=== PATIENT | male | born 1930 | race Caucasian/White ===

== ENCOUNTER 2017-03-15 11:19 | Emergency (ER) | payer MEDICARE, BC ==
[2017-03-15] MEDS ORDERED: Sodium Chloride 0.9% 2.5 ML Syringe FLUSH PRN (11:56)
[2017-03-15] MEDS ORDERED: Sodium Chloride 0.9% 10 ML Syringe FLUSH PRN (11:56)
[2017-03-15] MEDS ORDERED: Morphine 2 MG/ML Syringe IVPUSH ONE (11:56)
[2017-03-15] MEDS ORDERED: Ondansetron 4 MG/2 ML SDV IVPUSH ONE (11:56)
--- NOTE | 2017-03-15 11:58 | EDM.PDOC ---
ED HPI GENERAL MEDICAL PROBLEM - General Chief Complaint: Back Pain or Injury Stated Complaint: PT SPOKE TO NURSE Time Seen by Provider: 03/15/17 11:39 - History of Present Illness INITIAL COMMENTS - FREE TEXT/NARRATIVE: HISTORY AND PHYSICAL: History of present illness: The patient is an 86-year-old male who is here with complaints of right lower back and right lower abdominal pain that he says started gradually yesterday and was worse today. The patient is not a very good historian and says he only medication that he takes his hydrochlorothiazide and that he [facility]. According to family he lives alone and they check in on him and help him with his groceries and other tasks and that he has on and off complained of pain in a variety of locations but they were unsure if he actually followed up for those issues. Today his pain seemed to be worse and he was having difficulty moving and walking so they suggested that he comes here. The patient indicates the area of pain as he is right posterior pelvis area not his flank and says it radiates to the front. It does not radiate down his leg and he has no weakness or neurosensory changes in his leg. He tells me that he is having normal bowel movements but the family say that sometimes he can get very constipated. According to the family they have suspected that he is having signs of dementia and forgetfulness as been gradual in onset. The patient on my evaluation denies any fevers chills chest pain shortness of breath nausea vomiting or urinary complaints. The patient has a large well-healed midline abdominal scar which when I ask him what that is from he says he doesn't know. The family tells me that he had cancer surgery and they're not sure what surgery he had done but that he is allegedly in remission. Patient has never had back surgery. The patient denies extremity complaints and has no upper back pain or neck pain. He says he took some Motrin this morning for pain but he does not take anything yesterday. He says he is eating normally. The patient tells me the pain is worse when he lays on his back and with certain movements. Review of systems: As per history of present illness and below otherwise all systems reviewed and negative. Past medical history: As per history of present illness and as reviewed below otherwise noncontributory. Surgical history: As per history of present illness and as reviewed below otherwise noncontributory. Social history: No reported history of drug or alcohol abuse. Family history: As per history of present illness and as reviewed below otherwise noncontributory. Physical exam: Gen.: Well-developed well-nourished man who is nontoxic and vital signs have been reviewed by me. Patient is able to move in the bed without assistance but looks uncomfortable in doing so. HEENT: Atraumatic, normocephalic, pupils reactive, negative for conjunctival pallor or scleral icterus, mucous membranes tacky throat clear, neck supple, nontender, trachea midline. Lungs: Clear to auscultation, breath sounds equal bilaterally, chest nontender. There are diminished breath sounds in the bases and not a very good effort on my exam but there is no worker breathing or sensory muscle use or breathlessness Heart: S1S2, regular, negative for clicks, rubs, or JVD. Abdomen: Soft, nondistended, bowel sounds are hypoactive. There is a well- healed large mid abdominal scar appreciated and just below the umbilicus to the right there is a large cantaloupe sized well demarcated mass appreciated which is not pulsatile and is tender. There is no gross hernial defect appreciated in the scar. When asked the patient about this mass he says he did not know that it was there. Negative for masses or hepatosplenomegaly. Negative for costovertebral tenderness. Pelvis: Stable nontender. Genitourinary: Deferred. Rectal: Deferred. Extremities: Atraumatic, negative for cords or calf pain. Neurovascular unremarkable. Full range of motion without defects or deficits Neuro: Awake, alert, oriented. Cranial nerves II through XII unremarkable. Cerebellum unremarkable. Motor and sensory unremarkable throughout. Exam nonfocal. Back: There are no midline step-offs in his defects of the thoracic or lumbar spine no posterior rib tenderness no posterior pelvis tenderness and no soft tissue injuries. There is no CVA tenderness. Please note that the patient has triphasic dorsalis pedis on the right and a biphasic dorsalis pedis on the left with good cap refill good color normal sensation in his lower extremities. Diagnostics: CBC CMP amylase lipase INR lactic acid UA CT scan of the abdomen and pelvis CT scan of the lumbar spine portable chest x-ray Therapeutics: IV IV fluids morphine Zofran Dilaudid labetalol Ch to gravity I discussed with the patient and family at bedside the CAT scan results as it appears that he has a very large unruptured AAA. I am currently trying to procure a flight team and the location that has adequate vascular keep ability to handle this. I have told the patient and the family that if this ruptures this will be devastating. They state understanding. I've alerted blood bank that I will need blood for the trip which may or may not need to be used. We will proceed to get things arranged and continue to monitor the patient closely. 1320: This was discussed with the ER physician Dr. Alas at [facility] in [place]. She will talk with their subspecialist to see if they have the capability to take this patient 1329: Dr Alas recontacted me and said that Dr. Brandt would be able to do an endograft but he would like to see the CAT scan himself. We are currently transferring that imaging to [facility] to see if they will accept the patient. 1339: The tele-radiologist has contacted me and says that the aneurysm is 6.8 cm and calcified; he does not feel that there is any acute rupture that he is able to see but he cannot evaluate if there is any dissection with in this region.. He also tells me the patient has signs and symptoms of a chronic bladder outlet obstruction and his bladder is distended with bilateral hydroureter. We will place a Ch catheter immediately and reassess the patient 's pain and blood pressure. We are currently awaiting to hear from [facility] whether or not they will be accepting of this case. Patient and family are aware of the radiologist report 1420: We were able to get a Ch and after multiple attempts and there are multiple clots which have been irrigated and there is drainage of urine but it is very slow as the catheter is only a 14 [place] coud. The flight team has landed and is in route here. Blood is at the bedside to go with the patient and I have discussed with the family at length the findings and the care plan. They' re comfortable with this as is the patient. They understand the severity of this problem and the risks involved. Patient's vitals are still with elevated blood pressure but we will try dilaudid for pain as I am unclear if his hypertension is due to pain or is continued distention of his bladder. I will alert the flight team of my concerns Critical care time excluding procedures-- 45min Impression: Dominant and back pain, large unruptured AAA, hypertension poorly controlled, acute on chronic urinary retention Definitive disposition and diagnosis as appropriate pending reevaluation and review of above. Right Lower Back Pain Score (Numeric/FACES): 10 - Related Data Allergies Allergy/AdvReac Type Severity Reaction Status Date / Time No Known Allergies Allergy Verified 03/15/17 11:38 Home Meds: Home Meds Hydrochlorothiazide 25 mg PO DAILY 03/15/17 [History] Past Medical History HEENT History: Reports: None Cardiovascular History: Reports: Hypertension Respiratory History: Reports: None Gastrointestinal History: Reports: None Genitourinary History: Reports: None Musculoskeletal History: Reports: None Neurological History: Reports: None Psychiatric History: Reports: None Endocrine/Metabolic History: Reports: None Hematologic History: Reports: None Immunologic History: Reports: None Oncologic (Cancer) History: Reports: None Dermatologic History: Reports: None - Infectious Disease History Infectious Disease History: Reports: Measles - Past Surgical History Head Surgeries/Procedures: Reports: None HEENT Surgical History: Reports: None Cardiovascular Surgical History: Reports: None Respiratory Surgical History: Reports: None GI Surgical History: Reports: None Male Surgical History: Reports: None Endocrine Surgical History: Reports: None Neurological Surgical History: Reports: None Musculoskeletal Surgical History: Reports: None Oncologic Surgical History: Reports: None Dermatological Surgical History: Reports: None Social & Family History - Family History Family Medical History: Noncontributory - Tobacco Use Smoking Status *Q: Never Smoker - Caffeine Use Caffeine Use: Reports: Coffee - Recreational Drug Use Recreational Drug Use: No ED ROS GENERAL - Review of Systems Review Of Systems: ROS reveals no pertinent complaints other than HPI. ED EXAM, GENERAL - Physical Exam Exam: See Below (See dictation) Course - Vital Signs Last Recorded V/S: Last Vital Signs Temp 36.3 C 03/15/17 11:39 Pulse 80 03/15/17 13:33 Resp 26 H 03/15/17 13:14 BP 198/125 H 03/15/17 13:33 Pulse Ox 98 03/15/17 13:14 - Orders/Labs/Meds Orders: Active Orders 24 hr Category Date Time Status Cardiac Monitoring [RC] . DIRECTED Care 03/15/17 11:55 Active Oxygen Therapy, ED [RC] ASDIRECTED Care 03/15/17 11:55 Active Pulse Oximetry [RC] ASDIRECTED Care 03/15/17 11:55 Active Abdomen Pelvis wo Cont [CT] Stat Exams 03/15/17 11:55 Taken Lumbar Spine wo Cont [CT] Stat Exams 03/15/17 11:55 Taken RED BLOOD CELLS LP [BBK] Stat Lab 03/15/17 13:24 Results TYPE AND SCREEN [BBK] Stat Lab 03/15/17 13:24 Results UA W/MICROSCOPIC [URIN] Stat Lab 03/15/17 11:55 Uncollected Sodium Chloride 0.9% [Normal Saline] 1,000 ml Med 03/15/17 12:00 Active IV ASDIRECTED Sodium Chloride 0.9% [Saline Flush] Med 03/15/17 11:56 Active 10 ml FLUSH ASDIRECTED PRN Sodium Chloride 0.9% [Saline Flush] Med 03/15/17 11:56 Active 2.5 ml FLUSH ASDIRECTED PRN Saline Lock Insert [OM.PC] Stat Oth 03/15/17 11:55 Ordered Medication Orders Sodium Chloride (Normal Saline) 1,000 mls @ 83 mls/hr IV ASDIRECTED MELLISA Last Admin: 03/15/17 12:12 Dose: 83 mls/hr Sodium Chloride (Saline Flush) 10 ml FLUSH ASDIRECTED PRN PRN Reason: Keep Vein Open Last Admin: 03/15/17 12:13 Dose: 10 ml Sodium Chloride (Saline Flush) 2.5 ml FLUSH ASDIRECTED PRN PRN Reason: Keep Vein Open Last Admin: 03/15/17 12:13 Dose: 2.5 ml Labs: Laboratory Tests 03/15/17 03/15/17 03/15/17 Range/Units 12:12 12:12 12:12 WBC 13.52 H (4.0-11.0) K/uL RBC 4.65 (4.50-5.90) M/uL Hgb 13.5 (13.0-17.0) g/dL Hct 40.0 (38.0-50.0) % MCV 86.0 (80.0-98.0) fL MCH 29.0 (27.0-32.0) pg MCHC 33.8 (31.0-37.0) g/dL RDW Std Deviation 45.6 (28.0-62.0) fl RDW Coeff of Lis 15 (11.0-15.0) % Plt Count 206 (150-400) K/uL MPV 9.50 (7.40-12.00) fL Neut % (Auto) 85.3 H (48.0-80.0) % Lymph % (Auto) 6.3 L (16.0-40.0) % [place] % (Auto) 8.1 (0.0-15.0) % Eos % (Auto) 0.2 (0.0-7.0) % Baso % (Auto) 0.1 (0.0-1.5) % Neut # (Auto) 11.5 H (1.4-5.7) K/uL Lymph # (Auto) 0.9 (0.6-2.4) K/uL [place] # (Auto) 1.1 H (0.0-0.8) K/uL Eos # (Auto) 0.0 (0.0-0.7) K/uL Baso # (Auto) 0.0 (0.0-0.1) K/uL Nucleated RBC % 0.0 /100WBC Nucleated RBCs # 0 K/uL INR 1.09 (0.86-1.11) Lactate 2.3 H (0.20-2.00) mmol/L Sodium (136-146) mmol/L Potassium (3.5-5.1) mmol/L Chloride (98-110) mmol/L Carbon Dioxide (21-31) mmol/L BUN (6.0-23.0) mg/dL Creatinine (0.6-1.5) mg/dL Est Cr Clr Drug Dosing mL/min Estimated GFR (MDRD) ml/min Glucose (60-110) mg/dL Calcium (8.8-10.8) mg/dL Total Bilirubin (0.1-1.5) mg/dL AST (5-40) IU/L ALT (8-54) IU/L Alkaline Phosphatase (40-150) Total Protein (6.0-8.0) g/dL Albumin (3.4-4.8) g/dL Globulin (2.0-3.5) g/dL Albumin/Globulin Ratio (1.3-2.8) Amylase (10-90) U/L Lipase (7-80) U/L Blood Type Antibody Screen Crossmatch 03/15/17 03/15/17 Range/Units 12:12 13:24 WBC (4.0-11.0) K/uL RBC (4.50-5.90) M/uL Hgb (13.0-17.0) g/dL Hct (38.0-50.0) % MCV (80.0-98.0) fL MCH (27.0-32.0) pg MCHC (31.0-37.0) g/dL RDW Std Deviation (28.0-62.0) fl RDW Coeff of Lis (11.0-15.0) % Plt Count (150-400) K/uL MPV (7.40-12.00) fL Neut % (Auto) (48.0-80.0) % Lymph % (Auto) (16.0-40.0) % [place] % (Auto) (0.0-15.0) % Eos % (Auto) (0.0-7.0) % Baso % (Auto) (0.0-1.5) % Neut # (Auto) (1.4-5.7) K/uL Lymph # (Auto) (0.6-2.4) K/uL [place] # (Auto) (0.0-0.8) K/uL Eos # (Auto) (0.0-0.7) K/uL Baso # (Auto) (0.0-0.1) K/uL Nucleated RBC % /100WBC Nucleated RBCs # K/uL INR (0.86-1.11) Lactate (0.20-2.00) mmol/L Sodium 138 (136-146) mmol/L Potassium 3.9 (3.5-5.1) mmol/L Chloride 103 (98-110) mmol/L Carbon Dioxide 19 L (21-31) mmol/L BUN 25 H (6.0-23.0) mg/dL Creatinine 2.6 H (0.6-1.5) mg/dL Est Cr Clr Drug Dosing 22.38 mL/min Estimated GFR (MDRD) 23.5 ml/min Glucose 130 H (60-110) mg/dL Calcium 9.8 (8.8-10.8) mg/dL Total Bilirubin 1.6 H (0.1-1.5) mg/dL AST 35 (5-40) IU/L ALT 9 (8-54) IU/L Alkaline Phosphatase 84 (40-150) Total Protein 8.2 H (6.0-8.0) g/dL Albumin 4.1 (3.4-4.8) g/dL Globulin 4.1 H (2.0-3.5) g/dL Albumin/Globulin Ratio 1.0 L (1.3-2.8) Amylase 49 (10-90) U/L Lipase < 9 (7-80) U/L Blood Type A POSITIVE Antibody Screen NEGATIVE Crossmatch See Detail Meds: Medications Generic Name Dose Route Start Last Admin Trade Name Freq PRN Reason Stop Dose Admin Sodium Chloride 1,000 mls @ 83 mls/hr 03/15/17 12:00 03/15/17 12:12 Normal Saline IV 83 mls/hr ASDIRECTED MELLISA Administration Sodium Chloride 10 ml 03/15/17 11:56 03/15/17 12:13 Saline Flush FLUSH 10 ml ASDIRECTED PRN Administration Keep Vein Open Sodium Chloride 2.5 ml 03/15/17 11:56 03/15/17 12:13 Saline Flush FLUSH 2.5 ml ASDIRECTED PRN Administration Keep Vein Open Discontinued Medications Generic Name Dose Route Start Last Admin Trade Name Freq PRN Reason Stop Dose Admin Furosemide 10 mg 03/15/17 13:13 03/15/17 13:36 Lasix IVPUSH 03/15/17 13:14 Not Given NOW ONE Hydromorphone HCl 0.5 mg 03/15/17 13:13 03/15/17 13:32 Dilaudid IVPUSH 03/15/17 13:14 0.5 mg ONETIME ONE Administration Hydromorphone HCl 1 mg 03/15/17 14:16 03/15/17 14:19 Dilaudid IVPUSH 03/15/17 14:17 1 mg ONETIME ONE Administration Labetalol HCl 10 mg 03/15/17 13:27 03/15/17 13:33 Normodyne IVPUSH 03/15/17 13:28 10 mg .BOLUS ONE Administration Protocol Labetalol HCl 20 mg 03/15/17 13:26 03/15/17 13:36 Normodyne IVPUSH 03/15/17 13:27 Not Given .BOLUS ONE Protocol Labetalol HCl Confirm 03/15/17 13:27 03/15/17 13:32 Normodyne Administered 03/15/17 13:28 Not Given Dose 100 mg .ROUTE .STK-MED ONE Metoprolol Tartrate 10 mg 03/15/17 13:22 03/15/17 13:36 Lopressor IVPUSH 03/15/17 13:23 Not Given ONETIME ONE Morphine Sulfate 2 mg 03/15/17 11:56 03/15/17 12:12 Morphine IVPUSH 03/15/17 11:57 2 mg ONETIME ONE Administration Ondansetron HCl 4 mg 03/15/17 11:56 03/15/17 12:12 Zofran IVPUSH 03/15/17 11:57 4 mg ONETIME ONE Administration Departure - Departure Time of Disposition: 14:24 Disposition: DC/Tfer to Acute Hospital 02 Condition: Fair Clinical Impression: Acute urinary retention Aortic aneurysm Qualifiers: Aortic location: abdominal aorta Presence of rupture: without rupture Qualified Code(s): I71.4 - Abdominal aortic aneurysm, without rupture - Discharge Information Referrals: PCP,None [Primary Care Provider] - Forms: ED Department Discharge - My Orders Last 24 Hours: My Active Orders 03/15/17 11:55 Cardiac Monitoring [RC] . DIRECTED Oxygen Therapy, ED [RC] ASDIRECTED Pulse Oximetry [RC] ASDIRECTED Abdomen Pelvis wo Cont [CT] Stat Lumbar Spine wo Cont [CT] Stat UA W/MICROSCOPIC [URIN] Stat Saline Lock Insert [OM.PC] Stat 03/15/17 11:56 Sodium Chloride 0.9% [Saline Flush] 10 ml FLUSH ASDIRECTED PRN Sodium Chloride 0.9% [Saline Flush] 2.5 ml FLUSH ASDIRECTED PRN 03/15/17 12:00 Sodium Chloride 0.9% [Normal Saline] 1,000 ml IV ASDIRECTED 03/15/17 13:24 RED BLOOD CELLS LP [BBK] Stat TYPE AND SCREEN [BBK] Stat - Assessment/Plan Last 24 Hours: My Active Orders 03/15/17 11:55 Cardiac Monitoring [RC] . DIRECTED Oxygen Therapy, ED [RC] ASDIRECTED Pulse Oximetry [RC] ASDIRECTED Abdomen Pelvis wo Cont [CT] Stat Lumbar Spine wo Cont [CT] Stat UA W/MICROSCOPIC [URIN] Stat Saline Lock Insert [OM.PC] Stat 03/15/17 11:56 Sodium Chloride 0.9% [Saline Flush] 10 ml FLUSH ASDIRECTED PRN Sodium Chloride 0.9% [Saline Flush] 2.5 ml FLUSH ASDIRECTED PRN 03/15/17 12:00 Sodium Chloride 0.9% [Normal Saline] 1,000 ml IV ASDIRECTED 03/15/17 13:24 RED BLOOD CELLS LP [BBK] Stat TYPE AND SCREEN [BBK] Stat
[2017-03-15] MEDS ORDERED: Sodium Chloride 0.9% 1,000 ML IV SCH (12:00)
[2017-03-15 12:51] LABS: CHLORIDE,CL 103 mmol/L (98-110); SODIUM,NA 138 mmol/L (136-146)
[2017-03-15] MEDS ORDERED: HYDROmorphone 2 MG/ML Syringe IVPUSH ONE (13:13)
[2017-03-15] MEDS ORDERED: Furosemide 40 MG/4 ML VIAL IVPUSH ONE (13:13)
[2017-03-15] MEDS ORDERED: Metoprolol Tartrate 5 MG/5 ML SDV IVPUSH ONE (13:22)
[2017-03-15] MEDS ORDERED: Labetalol 5 MG/ML 5 ML Syringe IVPUSH ONE ×2 (13:26→13:27)
[2017-03-15] MEDS ORDERED: Labetalol 100 MG/20 ML MDV ONE (13:27)
[2017-03-15] MEDS ORDERED: HYDROmorphone 1 MG/ML Syringe IVPUSH ONE (14:16)
--- NOTE | 2017-03-16 14:40 | CT ---
EXAM DATE: 03/15/17 PATIENT'S AGE: 86 Patient: LUIZ MARCELO Facility: [place], [place] Site . Site : 1930 Study: CT Abdomen/Pelvis [id number]/12/2017 1:23:51 PM Ordering Physician: Sonia Fulton Final Report: Indication: Sudden onset of severe back pain. History of fusiform abdominal aneurysm. Comparison: None provided. Technique: Noncontrast images lung bases to proximal femurs. Findings: No finding of significance in the lung bases. Mild chronic fibrotic changes and hyperinflation. Heart size is normal. No hiatus hernia. Liver, gallbladder, spleen, adrenals and pancreas appear normal. Parapelvic a parenchymal cyst upper pole on the left is 4.6 cm greatest diameter. Mild hydroureter and moderate hydronephrosis bilaterally. Distended urinary bladder. Prominent heterogeneous prostatomegaly with irregular median lobe extension into the bladder base. Minimal perinephric stranding. No cortical thinning of significance allowing for age. Infrarenal abdominal aortic aneurysm. Dilatation begins just at the level of the renal artery take-off. Greatest anterior posterior diameter approximately 6.8 cm at the level of L3 vertebral body. It somewhat elongated lumen along the posterior margin of the dilated vessel with prominent semilunar mural thrombus ventrally. No retroperitoneal hemorrhage. Aneurysmal dilatation extends into the common iliac arteries bilaterally. Left side greatest maximal diameter is 3 cm. Right side is approximately 1.8 cm. Osteopenia. Diffuse degenerative disk and facet changes. 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 Mild osteoarthritis of the hips. Impression: 1. Prominent fusiform infrarenal abdominal aortic aneurysm with maximal diameter of 6.8 cm. Dilatation extends into the common iliac origins more prominently on the left. No retroperitoneal hemorrhage. Vascular Surgery referral for consultation for repair recommended. 2. Urinary bladder retention and mild hydroureter and hydronephrosis secondary to significant prostatomegaly. Incidentally noted parapelvic cysts of both kidneys. No significant atrophy appreciated. Please note that all CT scans at this facility use dose modulation, iterative reconstruction, and/or weight-based dosing when appropriate to reduce radiation dose to as low as reasonably achievable. Dictated by Luis Collier MD @ Mar 15 2017 1:33PM (Electronic Signature) Report Signed by Proxy. ROBINSON
--- NOTE | 2017-03-16 16:12 | CT ---
EXAM DATE: 03/15/17 PATIENT'S AGE: 86 Patient: LUIZ MARCELO Facility: [place], [place] Site . Site : 1930 Study: CT Spine Lumbar [id number]/12/2017 1:31:52 PM Ordering Physician: Sonia Fulton Final Report: Indication : New onset severe back pain. Comparison: 24 November 2010. Technique: Multi detector noncontrast images lumbar spine with axial, coronal and sagittal 2D reformats. Findings: Osteopenia. No acute fracture. Mineralization of the discs with relatively well- maintained disc heights for age. 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 Degenerative ankylosis left sacroiliac joint. Moderately severe osteoarthritis right sacroiliac joint. Arm infrarenal abdominal aortic aneurysm with greatest diameter of 6.8 cm. This is increased from 2011. Urinary bladder retention. Hydronephrosis. Chronic cyst upper pole left kidney. Impression: 1. Enlarging infrarenal abdominal aortic aneurysm. Vascular surgery referral recommended. No definitive findings for acute rupture. 2. No spine fracture. Osteopenia. 3. Urinary retention. Chronic prominent prostatomegaly and apparently chronic hydronephrosis. Please note that all CT scans at this facility use dose modulation, iterative reconstruction, and/or weight-based dosing when appropriate to reduce radiation dose to as low as reasonably achievable. Dictated by Luis Collier MD @ Mar 15 2017 1:58PM (Electronic Signature) Report Signed by Proxy. MTDD
--- NOTE | 2017-03-16 16:13 | CR ---
EXAM DATE: 03/15/17 PATIENT'S AGE: 86 Patient: LUIZ MARCELO Facility: [place], [place] Site . Site : 1930 Study: XRay Chest [id number]/12/2017 2:28:11 PM Ordering Physician: Sonia Fulton Final Report: Indication: Back pain. Technique: One view. Findings: Moderately enlarged ascending aorta to the arch and probably through the descending portion as well. No mediastinal widening or indistinctness. Heart size is normal. Lungs appear clear. Peripheral pulmonary vascularity appears normal. No evident pneumothorax or effusion. Dictated by Luis Collier MD @ Mar 15 2017 2:39PM (Electronic Signature) Report Signed by Proxy. ROBINSON
== END 2017-03-15 14:50 ==
LOC: MW.ED 11:19
DX: I71.4 Abdominal aortic aneurysm, without rupture (principal); I10 Essential (primary) hypertension; R33.9 Retention of urine, unspecified; Z79.899 Other long term (current) drug therapy
CPT/HCPCS: 36415; 51702; 71010; 72131; 74176; 80053; 81001; 82150; 83605; 83690; 85025; 85610; 96361; 96374; 96375; 96376; 99285; J1170; J2270; J2405; J7040